=== PATIENT | male | born 1990 | race Caucasian/White ===

== ENCOUNTER 2022-09-13 01:28 | Emergency (ER) | payer OTHER, SELFPAY | END 2022-09-13 02:30 | disposition home or self-care (01) | LOC: CSHERS 01:28 | DX: S00.81XA Abrasion of other part of head, initial encounter (principal); S40.812A Abrasion of left upper arm, initial encounter; S40.811A Abrasion of right upper arm, initial encounter; S80.812A Abrasion, left lower leg, initial encounter; S80.811A Abrasion, right lower leg, initial encounter; V89.2XXA Person injured in unspecified motor-vehicle accident, traffic, initial encounter | CPT/HCPCS: 99283 ==